=== PATIENT | male | born 1965 | race Caucasian/White ===

== ENCOUNTER 2016-12-09 08:45 | Outpatient (CLI) | payer OTHER ==
[2016-12-09 09:55] LABS: eGFR (African) > 60; eGFR (Non-African) > 60
== END 2016-12-09 08:55 ==
LOC: LAB 08:45
PROVIDERS: ATTEND Physician Assistant
DX: Z00.00 Encounter for general adult medical examination without abnormal findings (principal); E78.00 Pure hypercholesterolemia, unspecified; Z13.6 Encounter for screening for cardiovascular disorders; Z12.5 Encounter for screening for malignant neoplasm of prostate
CPT/HCPCS: 36415; 80053; 80061; 84153

== ENCOUNTER 2017-07-12 16:51 | Outpatient (CLI) | payer OTHER ==
[2017-07-12 17:18] LABS: BASOPHILS % 0.5 (0.0-1.5); EOSINOPHILS % 2.4 % (0.0-6.8); MEAN CORPUSCULAR HEMOGLOBIN 30.3 pg (28.0-34.0); MEAN CORPUSCULAR VOLUME 88.9 fl (80.0-100.0); MONOCYTES % 5.2 % (0.0-11.0)
[2017-07-12 17:46] LABS: eGFR (African) > 60; eGFR (Non-African) > 60
== END 2017-07-12 17:00 ==
LOC: LAB 16:51
PROVIDERS: ATTEND Family Medicine
DX: R25.1 Tremor, unspecified (principal)
CPT/HCPCS: 36415; 80053; 84443; 85025

== ENCOUNTER 2017-09-05 08:47 | Outpatient (CLI) | payer OTHER ==
[2017-09-05 09:53] LABS: eGFR (African) > 60; eGFR (Non-African) > 60
== END 2017-09-05 08:50 ==
LOC: LAB 08:47
PROVIDERS: ATTEND Family Medicine
DX: E03.9 Hypothyroidism, unspecified (principal); R17 Unspecified jaundice
CPT/HCPCS: 36415; 80053; 84443

== ENCOUNTER 2017-12-14 08:55 | Outpatient (CLI) | payer OTHER ==
[2017-12-14 09:59] LABS: eGFR (African) > 60; eGFR (Non-African) > 60
== END 2017-12-14 08:56 ==
LOC: LAB 08:55
PROVIDERS: ATTEND Family Medicine
DX: Z12.5 Encounter for screening for malignant neoplasm of prostate (principal); Z00.00 Encounter for general adult medical examination without abnormal findings
CPT/HCPCS: 36415; 80053; 80061; G0103

== ENCOUNTER 2018-07-02 08:23 | Outpatient (CLI) | payer OTHER | END 2018-07-02 08:25 | LOC: LAB 08:23 | PROVIDERS: ATTEND Family Medicine | DX: E03.9 Hypothyroidism, unspecified (principal) | CPT/HCPCS: 36415; 84443 ==

== ENCOUNTER 2018-12-04 08:34 | Outpatient (CLI) | payer OTHER ==
[2018-12-04 09:56] LABS: eGFR (Non-African) > 60
[2018-12-04 09:57] LABS: HDL 52 mg/dL (>40)
== END 2018-12-04 08:36 ==
LOC: LAB 08:34
PROVIDERS: ATTEND Family Medicine
DX: E03.9 Hypothyroidism, unspecified (principal); Z13.220 Encounter for screening for lipoid disorders; Z12.5 Encounter for screening for malignant neoplasm of prostate
CPT/HCPCS: 36415; 80053; 80061; 84153; 84443